=== PATIENT | female | born 1970 | race Caucasian/White ===

== ENCOUNTER 2017-02-18 10:39 | Emergency (ER) | payer OTHER ==
[~2017-02-18] VITALS: Ht 167.6 cm; Wt 48.4 kg
[2017-02-18 10:49] VITALS: TEMP 36.7; Ht 167.6 cm; Wt 48.4 kg
[2017-02-18] MEDS ORDERED: IBUP-1428 PO (11:04)
[2017-02-18] MEDS ORDERED: HYDR-5688 PO (11:21)
[2017-02-18] MEDS ORDERED: CLIN300C10 PO (11:21)
[2017-02-18] MEDS ORDERED: ONDA4TAB46 PO (11:21)
[2017-02-18 11:30] VITALS: BP 121/72; PULSE 88; O2SAT 100
--- NOTE | 2017-02-18 20:10 | EMERGENCY ROOM VISIT NOTE ---
ED Visit Note First contact with patient: 11:01 Chief Complaint: My left lower eyelid is sore and swollen. History of Present Illness: Ms. Joe is a 47-year-old white female who ambulates into the ED complaining of left lower eyelid redness, swelling and pain. Patient reports 3 days ago she noticed a small red lump on her lower eyelid consistent with a stye. Initially this was not associated with any pain but mild itching. She reports she's been itching her eye and then over the last 24 hours she has noted increasing the size of the small red lump, redness extending into the area inferior to the eyelid, increasing pain and this morning when she rubbed her eyes she reports there was a small amount of pus like drainage. Currently she describes her pain as a throbbing and deep achy sensation. She rates her discomfort 8/10. The pain is nonradiating. The pain worsens with palpation of the affected area. She has not identified any alleviating factors related to the pain. She reports she is taking 1 dose of ibuprofen last night with minimal relief of her discomfort. She denies any associated recent trauma , fevers, chills, sweats, other skin eruptions, other skin color changes, headache, visual changes, eye drainage, light sensitivity, other facial pain, upper respiratory tract symptoms, shortness of breath, chest pain, abdominal pain, nausea, vomiting, decreased appetite. Review of Systems: As noted above in history of present illness. All body systems were reviewed and found to be negative as noted above. Past Medical History: Heart disease/surgery as an , bronchitis, kidney stone, previous MRSA infections. Current Medications: Patient denies. Allergies to Medications: Penicillin, Vicodin. Social History: Patient is not employed; she feels safe in her home environment ; she denies tobacco and alcohol use. Physical Examination: Vital Signs: Date Time Temp Pulse Resp B/P Pulse Ox O2 Delivery O2 Flow Rate FiO2 02/18/17 11:30 88 18 121/72 100 02/18/17 10:49 36.7 92 17 117/68 99 Room Air GENERAL: 47-year-old female in moderate distress due to pain, nontoxic-appearing , afebrile and hemodynamically stable. NEUROLOGICAL: Awake, alert and oriented to person, place and time. Answering questions appropriately and following commands. Normal gait. Good hand eye coordination. No focal motor sensory deficits. SKIN: Warm, dry and pink. Face: Over the lateral aspect of the left lower eyelid patient has stye that measures approximately 8 mm in length. The stye is pointing and draining purulent like material. Extending below that there is an area of erythema that and is over the upper portions of the zygomatic facial bone. There is no lymphangitis. HEENT: Atraumatic and normocephalic. Please note soft tissue wound above under SKIN. PERRLA. EOMI without nystagmus or painful movements. Sclera white and conjunctiva pink. Visual acuity: Left 20/50 with correction, Right 20 /40 with correction. No drainage from naris. Airway is patent. Speech normal. No local lymphadenopathy. Trachea midline. No jugular venous distention. THORAX: Lungs sounds are clear to auscultation and equal bilaterally with symmetrical chest wall. No wheezing, rales or rhonchi. ABDOMEN: Flat, soft and nontender. Positive bowel sounds in all quadrants. No guarding, rigidity or organomegaly. ED Course: Patient is assessed as noted above. Patient was educated about today's findings and instructed on her treatment plan ; she verbalizes understanding and agreement with this plan. Clinical Impression: External stye. Mild facial cellulitis. Disposition: Patient discharged home in stable condition accompanied by female friends; prior to departure she was reassessed and subjectively reported she was feeling the same. Plan: Patient was prescribed clindamycin 300 mg 4 times a day for 10 days. At patient's request she was given a prescription for Zofran 4 mg every 6 hours for nausea/vomiting. Patient was placed on a sliding pain medication scale of ibuprofen, acetaminophen and OxyIR; her personal information was reviewed in the state database and no red flags are noted. She was given appropriate precautions for narcotic use. Patient was encouraged to use warm compresses on the area for redness and not to pick at her wound. Patient was encouraged to avoid contact use. Patient was encouraged to follow-up with her PCP or return to the ED in 36-48 hours for recheck. Patient was educated on signs of worsening infection and she was encouraged return to the ED for any signs of worsening infection, visual changes or any new /concerning symptoms.
== END 2017-02-18 11:31 | disposition home or self-care (01) ==
LOC: C.EDB 10:40 → C.EDD 11:31
DX: H00.015 Hordeolum externum left lower eyelid (principal); L03.211 Cellulitis of face